=== PATIENT | male | born 1970 | race Asian ===

== ENCOUNTER 2023-10-19 13:01 | Emergency (ER) | payer OTHER ==
[2023-10-19 13:07] VITALS: BP 155/97; PULSE 102; RESP 19; TEMP 97.3; BMI 21.6
[2023-10-19] MEDS ORDERED: FAMOTIDINE 20 MG TABLET ONE (13:11)
[2023-10-19] MEDS ORDERED: diphenhydrAMINE HCL 25 MG CAPSULE (FP) PO ONE (13:11)
[2023-10-19] MEDS ORDERED: EPINEPHrine/PF 1 MG/1 ML (1:1,000) AMPULE ONE (13:11)
[2023-10-19] MEDS ORDERED: DEXAMETHASONE SOD PHOSPHATE 10 MG/1 ML VIAL ONE (13:12)
[2023-10-19] MEDS: EPINEPHrine 1:1,000 0.3 MG/0.3 ML SYR IM ONE (13:18)
[2023-10-19] MEDS: EPINEPHrine/PF 1 MG/1 ML (1:1,000) AMPULE IM ONE (13:18)
[2023-10-19] MEDS: DEXAMETHASONE LIQUID 0.5 MG/5 ML PO ONE (13:20)
[2023-10-19] MEDS: diphenhydrAMINE HCL 25 MG CAPSULE (FP) PO ONE (13:20)
[2023-10-19] MEDS: DEXAMETHASONE SOD PHOSPHATE 10 MG/1 ML VIAL PO ONE (13:20)
[2023-10-19] MEDS: FAMOTIDINE 20 MG TABLET PO ONE (13:25)
== END 2023-10-19 16:46 | disposition home or self-care (01) ==
LOC: FER 13:01
PROC: 3E023GC Introduction of Other Therapeutic Substance into Muscle, Percutaneous Approach (ICD-10-PCS; principal; 2023-10-19)
DX: L50.0 Allergic urticaria (principal); T63.441A Toxic effect of venom of bees, accidental (unintentional), initial encounter; W57.XXXA Bitten or stung by nonvenomous insect and other nonvenomous arthropods, initial encounter
CPT/HCPCS: 99284-25; J0171; J1100